=== PATIENT | female | born 1995 | race Caucasian/White ===

== ENCOUNTER 2025-03-31 18:56 | Inpatient (IN) ==
--- NOTE | 2025-03-31 20:02 | History & Physical Report ---
Date of Service March 31, 2025 Assessment & Plan (1) 39 weeks gestation of : (2) Vaginal discharge during : Plan No evid of rom. She is concerned she is partially ruptured, but i could feel palpable bag and no ferning. Will have her walk with pad and reevaluate. She agrees. NST reactive. History of Present Illness Chief Complaint: ?leaking Primary Care Provider: NO PCP 30yo at 39 weeks ega presents to LD with ? leak. She noted one episode of leaking with dripping down leg. Was asked to wear a pad and call if pad soaked. She shortly thereafter called and was concerned about pink dc and when I called her back she was sure she was leaking more fluid and wanted to come in for evaluation. She does feel more pain with ctx since arriving. Still with pink dc. 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 PNL rhpos, ri, gbs neg OBH: g1 GYNH: nl paps no stds Allergies Allergy/AdvReac Type Severity Reaction Status Date / Time No Known Allergies Allergy Verified 03/31/25 19:28 Home Medications Medication Instructions Recorded Confirmed Type 21-iron fu-folic acid 1 tab PO DAILY 09/04/24 03/31/25 History [ Complete] breast pump #1 ea 01/16/25 03/28/25 Rx Patient History Medical History Decreased ferritin Vitamin D deficiency Anorexia nervosa Varicella vaccination Surgical History S/P wisdom tooth extraction Family History Denies family history of Ovarian cancer Breast cancer Colorectal cancer Social History Smoking Status: Never smoker Do You Dip or Chew Tobacco: No; Hx Alcohol Use: No Hx Substance Use: No Preferred Language: Kinyarwanda Communication Ability: Effective Supervisor Brine Required: No Beliefs That Will Affect Care: None marital status: marital status details: Jean Gomez (29) [phone] Current Living Situation: Spouse Current Living Situation Comment: lives with spouse, cats-spouse changing litter current occupational status: employed current occupation: PhD student, research assist [employer] Feels Safe at Home: Yes Safety Concerns: Feels Safe At This Time Assistive Devices: Glasses Review of Systems as per Subjective / HPI Physical Exam Constitutional: WD/WN, vitals as above Neurologic: grossly normal Psychiatric: A+Ox3, euthymic affect Genitourinary: Manual OB Exam: + cervical dilation (palpable intact membrane) 1 cm (1+), + cervical effacement 90% and + station -1 (post) OB Exam Monitor Tracing: + external FHT monitor used, + external uterine monitor used (q2-3), + category I (nst reactive) and + normal FHT variability SSE no pooling. + pink/blood dc. nitrazine equiv. neg ferning. Results & Data Vital Signs (Past 12 Hours) Vital Signs Temp Pulse Resp BP 03/31/25 19:18 76 127/80 03/31/25 19:13 98.2 F 18 Coding Level of Care Code None Diagnoses 39 weeks gestation of Z3A.39 Vaginal discharge during O26.899; N89.8
--- NOTE | 2025-03-31 21:28 | Labor Progress Brief Note ---
Date of Service March 31, 2025 Subjective pt pad not wet. red blood and brown blood on pad. Assessment & Plan (1) 39 weeks gestation of : (2) Vaginal discharge during : Plan likely latent labor, can walk and be reexamined in 2hr or go home and call with worsening ctx, rom. fhts categ 1. Total time spent. 5min review of chart 15min by beside for this note and prior note --review of story, history, exam including slide exam. review of results and plan x 2. 10min documentation. Physical Exam Constitutional: WD/WN, vitals as above Genitourinary: Manual OB Exam: + cervical dilation (palpable membrane) 2 cm, + cervical effacement 100% and + station 0 (post) OB Exam Monitor Tracing: + external FHT monitor used, + external uterine monitor used (q3-4), + category I and + normal FHT variability Results & Data Vital Signs (Past 12 Hours) Vital Signs Temp Pulse Resp BP 03/31/25 19:18 76 127/80 03/31/25 19:13 98.2 F 18 Coding Level of Care Code 36571 OP VST EST MOD 30 MIN Diagnoses 39 weeks gestation of Z3A.39 Vaginal discharge during O26.899; N89.8 CPT Codes Misx Procedure Codes - 07238 NST: 21757 NST ([id number]) QUALITY [employer]OL ASSOCIATE Miscellaneous Codes Misx Procedure Codes 58710 NST
[2025-03-31] MEDS ORDERED: LIDOCAINE 1% LOCAL 20 ML VIAL INFIL PRN (22:13)
[2025-03-31] MEDS ORDERED: CALCIUM CARBONATE 500 MG CHEWABLE TAB PO PRN (22:13)
[2025-03-31] MEDS ORDERED: OXYTOCIN 30 UNITS/NSS 30 UNITS/500 ML BAG IV PRN (22:13)
--- NOTE | 2025-03-31 22:16 | Labor Progress Brief Note ---
Date of Service March 31, 2025 Subjective Patient had decided to go home but open getting up to get dressed, larger gush of fluid and gross srom per nurse. Assessment & Plan (1) 39 weeks gestation of : (2) PROM (premature rupture of membranes): Plan Now with gross srom. Admit in labor. fhts categ 1. Patient would like epidural. Physical Exam Constitutional: WD/WN, vitals as above Genitourinary: OB Exam Monitor Tracing: + external FHT monitor used, + external uterine monitor used, + category I and + normal FHT variability Results & Data Vital Signs (Past 12 Hours) Vital Signs Temp Pulse Resp BP 03/31/25 19:18 76 127/80 03/31/25 19:13 98.2 F 18 Coding Level of Care Code None Diagnoses 39 weeks gestation of Z3A.39 PROM (premature rupture of membranes) O42.90
[2025-03-31] MEDS ORDERED: NALOXONE HCL 1 MG in SODIUM CHLORIDE 0.9% 1,000 ML IV PRN (22:18)
[2025-03-31] MEDS ORDERED: SODIUM CHLORIDE 0.9% PF INJ 10 ML VIAL EPI PRN (22:18)
[2025-03-31] MEDS ORDERED: NALOXONE HCL 0.4 MG/1 ML VIAL/CARP IV PRN (22:18)
[2025-03-31] MEDS ORDERED: diphenhydrAMINE 50 MG/ML VIAL IV PRN (22:18)
[2025-03-31] MEDS ORDERED: BUPIVACAINE 0.25% PF 30 ML VIAL EPI PRN (22:18)
[2025-03-31] MEDS ORDERED: NALBUPHINE HCL INJ 10 MG/ML AMP IV PRN (22:18)
[2025-03-31] MEDS ORDERED: ROPIVACAINE 0.5% PF 5 MG/ML 20 ML VIAL EPI PRN (22:18)
[2025-03-31] MEDS ORDERED: LIDOCAINE 2% MPF LOCAL 5 ML VIAL EPI PRN (22:18)
--- NOTE | 2025-03-31 22:18 | Anesthesiology Consultation ---
Date of Service March 31, 2025 Assessment & Plan Chart Review Chart Review: Acceptable Risk for Surgery and Patient NOT seen in Pre Admission Testing Consults Requested none History Height/Weight Height: 5 ft 5 in Weight: 68.039 kg Allergies Allergy/AdvReac Type Severity Reaction Status Date / Time No Known Allergies Allergy Verified 03/31/25 19:28 Medications Home Medications Medication Instructions Recorded Confirmed Last Taken 21-iron fu-folic acid 1 tab PO DAILY 09/04/24 03/31/25 03/30/25 [ Complete] breast pump #1 ea 01/16/25 03/28/25 Unknown Past Medical History Medical History Decreased ferritin Vitamin D deficiency Anorexia nervosa Varicella vaccination Past Family History Family History Denies family history of Ovarian cancer Breast cancer Colorectal cancer Past Surgical History Surgical History S/P wisdom tooth extraction Social History Smoking Status: Never smoker Do You Dip or Chew Tobacco: No Hx Alcohol Use: No Hx Substance Use: No Physical Exam Vital Signs Last Vital Signs Temp 36.8 C 03/31/25 19:13 Pulse 76 03/31/25 19:18 Resp 18 03/31/25 19:13 BP 127/80 03/31/25 19:18
[2025-03-31] MEDS: LACTATED RINGER'S 1,000 ML IV PRN (22:20)
[2025-03-31 22:50] LABS: Hematocrit (blood only) 36.0 % (37.0-47.0); Hemoglobin 12.4 g/dl (12.0-16.0); Mean Corpuscular Hemoglobin 30.5 pg (25.0-34.0); Mean Corpuscular Volume 88.5 fL (80.0-100.0); Platelet Count 195 K/uL (130-400); RDW Standard Deviation 40.5 fL (36.4-46.3); Red Blood Count 4.07 M/uL (4.20-5.40); White Blood Count 9.38 K/ul (4.8-10.8)
[2025-03-31] MEDS: fentANYL 2 MCG/ML BUPIVacaine 0.125%-NSS 100ML BAG EPI PRN (23:07)
[2025-03-31] MEDS: LIDOCAINE 2%/EPINEPHRINE 1:200,000 20 ML PF EPI STA (23:18)
[2025-03-31] MEDS: OXYTOCIN 30 UNITS/NSS 30 UNITS/500 ML BAG IV PRN (23:55)
--- NOTE | 2025-04-01 00:09 | Delivery Summary ---
Vaginal Delivery Summary Date of Service April 01, 2025 Vaginal Delivery Summary The patient dilated to complete and pushed to deliver a viable female Apgars 9 and 9 via over small vaginal laceration. Mouth and nose bulb suctioned at perineum. Shoulders and body delivered with ease. was vigorous and crying at . Cord clamped at 30 seconds of life and to maternal abdomen where the cord was then doubly clamped and cut. Placenta delivered spontaneously and intact, three-vessel cord. Hemostasis achieved with dilute pitocin and uterine massage and drainage of the bladder for approximately 200 cc under sterile conditions. Laceration repaired with 3-0 vicryl at hymen with interrupted sutures and then periurethral laceration reapproximated with interrupted sutures of 3-0 vicryl. Cervix and sulci intact. QBL 59 cc. Mother and baby stable in recovery. [facility] Vaginal Delivery Charge Delivery Type Details:
[2025-04-01] MEDS: BUPIVACAINE 0.25% PF 30 ML VIAL EPI STA (01:08)
[2025-04-01] MEDS: SODIUM CHLORIDE 0.9% PF INJ 10 ML VIAL EPI STA (01:09)
[2025-04-01] MEDS: LIDOCAINE 2%/EPINEPHRINE 1:200,000 20 ML PF ONE (01:10)
[2025-04-01] MEDS: BUPIVACAINE 0.25% PF 30 ML VIAL ONE (01:10)
[2025-04-01] MEDS: fentANYL 2 MCG/ML BUPIVacaine 0.125%-NSS 100ML BAG ONE (01:10)
[2025-04-01] MEDS: SODIUM CHLORIDE 0.9% PF INJ 10 ML VIAL ONE (01:10)
[2025-04-01] MEDS ORDERED: OXYTOCIN 30 UNITS/NSS 30 UNITS/500 ML BAG IV PRN (01:11)
[2025-04-01] MEDS ORDERED: ACETAMINOPHEN 325 MG TAB PO PRN (01:11)
[2025-04-01] MEDS ORDERED: HYDROCORTISONE ACETATE 25 MG SUPP PR PRN (01:11)
[2025-04-01] MEDS: DIPHTHER/TETAN/PERTUS Vaccine (Tdap, Adol/Adult) 0.5mL IM ONE (07:15)
[2025-04-01] MEDS: PRENATAL VITAMIN 1 TAB PO SCH (07:35)
[2025-04-01] MEDS: DOCUSATE SODIUM 100 MG CAP PO SCH (07:35)
[2025-04-01] MEDS: IBUPROFEN 600 MG TAB PO PRN (07:35)
[2025-04-01] MEDS: BENZOCAINE 20% SPRY 85 APPLN/85 GM CAN EXT PRN (07:35)
--- NOTE | 2025-04-01 07:36 | Anesthesia Procedure Note ---
Date of Service April 01, 2025 Anesthesia Post Epidural Note Vital Signs Vital Signs: Temp Pulse Resp BP Pulse Ox O2 Del Method 36.7 C 62 16 122/74 100 Room Air 04/01/25 02:23 04/01/25 02:23 04/01/25 02:23 04/01/25 02:23 04/01/25 02:04/01/25 02:23 Notes Mental Status: alert / awake / arousable Nausea / Vomiting: adequately controlled Pain: adequately controlled Airway Patency, RR, SpO2: stable & adequate BP & HR: stable & adequate Hydration State: stable & adequate Neuraxial Anesthesia: was administered and sensory block is resolving Anesthetic Complications: no major complications apparent Epidural: Removed without complications and With tip intact
--- NOTE | 2025-04-01 10:41 | Obstetrical Progress Note ---
Date of Service April 01, 2025 Assessment & Plan (1) care and examination: Plan stable, doing well. routine care. rhpos, ri, breast feeding. Subjective Ambulation: ambulating normally Voiding: no voiding problems Diet Tolerance:: regular diet Lochia:: Small Feeding Type:: breast feeding no concerns Constitutional: + as per Subjective / HPI Physical Exam Constitutional WD/WN, vitals as above Respiratory normal respiratory effort, lungs clear to auscultation Cardiovascular Rate/Rhythm: regular rate and regular rhythm Gastrointestinal (Abdomen) Inspection/Auscultation: abdomen normal to inspection Percussion/Palpation: abdomen soft Fundus firm 1cm down toward right Musculoskeletal nt calves no edema Neurologic grossly normal Psychiatric A+Ox3, euthymic affect Results & Data Vital Signs (Past 12 Hours) Vital Signs Temp Pulse Pulse Resp BP BP Pulse Ox 04/01/25 07:45 99.0 F 73 20 112/70 97 04/01/25 02:23 98.1 F 62 16 122/74 100 04/01/25 02:01 73 123/68 04/01/25 01:46 75 111/66 04/01/25 01:31 61 116/69 04/01/25 01:16 61 111/66 04/01/25 01:01 68 108/63 04/01/25 00:46 18 04/01/25 00:46 81 109/64 04/01/25 00:31 80 113/69 04/01/25 00:21 18 04/01/25 00:16 110/63 04/01/25 00:01 87 113/62 04/01/25 00:00 90 98 03/31/25 23:55 93 H 97 03/31/25 23:50 101 H 96 03/31/25 23:48 118 H 140/78 03/31/25 23:47 90 18 88 L 03/31/25 23:45 102 H 97 03/31/25 23:41 95 H 90 03/31/25 23:39 81 98 03/31/25 23:34 70 97 03/31/25 23:33 75 110/71 03/31/25 23:29 61 98 03/31/25 23:24 64 97 03/31/25 23:20 18 03/31/25 23:20 98.1 F 18 03/31/25 23:19 58 L 99 03/31/25 23:18 56 L 114/68 03/31/25 23:16 61 116/67 03/31/25 23:14 71 112/69 97 03/31/25 23:12 64 121/80 03/31/25 23:10 60 123/76 03/31/25 23:09 70 97 03/31/25 23:08 59 L 119/78 03/31/25 23:06 61 124/77 03/31/25 23:04 61 97 03/31/25 23:00 62 94 03/31/25 22:59 61 97 03/31/25 22:54 68 95 O2 Del Method 04/01/25 07:45 Room Air 04/01/25 02:23 Room Air 04/01/25 02:01 04/01/25 01:46 04/01/25 01:31 04/01/25 01:16 04/01/25 01:01 04/01/25 00:46 04/01/25 00:46 04/01/25 00:31 04/01/25 00:21 04/01/25 00:16 04/01/25 00:01 04/01/25 00:00 03/31/25 23:55 03/31/25 23:50 03/31/25 23:48 03/31/25 23:47 03/31/25 23:45 03/31/25 23:41 03/31/25 23:39 03/31/25 23:34 03/31/25 23:33 03/31/25 23:29 03/31/25 23:24 03/31/25 23:20 03/31/25 23:20 03/31/25 23:19 03/31/25 23:18 03/31/25 23:16 03/31/25 23:14 03/31/25 23:12 03/31/25 23:10 03/31/25 23:09 03/31/25 23:08 03/31/25 23:06 03/31/25 23:04 03/31/25 23:00 03/31/25 22:59 03/31/25 22:54
[2025-04-01 12:08] VITALS: RESP 16
--- NOTE | 2025-04-02 05:57 | Obstetrical Progress Note ---
Date of Service April 02, 2025 Assessment & Plan (1) care and examination: Plan: Patient is post status day 2 and is currently stable. Will discharge today. Admission and Anticipated Discharge Date Admission Date: March 31, 2025 Subjective 30 yo post- day 1 s/p [] Ambulation: ambulating normally Voiding: no voiding problems Passing Gas:: Yes Diet Tolerance:: regular diet Feeding Type:: breast feeding Current Pain Level:2-3/10. Patient describes the pain as minor cramping in her lower abdomen. Patient also admits to having the pain with breast feeding as well. Resting comfortably this AM in NAD. Patient admits to breast pain when baby tries to latch onto her breast. Patient also stated that when she pees it mak when she doesn't use the spray bottle. Denies fevers/chills, GUTIERREZ, CP/palp, SOB/cough/wheezing, N/V, LE pain, breast dschrg Review of Systems Review of Systems: as per subjective HPI Physical Exam Constitutional: WD/WN, vitals as above Respiratory: normal respiratory effort, lungs clear to auscultation Cardiovascular: RRR, no murmur, no edema Extremities: no calf tenderness and no edema Gastrointestinal (Abdomen): Percussion/Palpation: abdomen soft; abdomen nontender Skin: no rashes, warm and dry Psychiatric: Eye Contact: good eye contact Speech: normal rate/rhythm/volume of speech Thought Process: linear/logical thought process Genitourinary: uterus is firm and Results & Data Vital Signs (Past 12 Hours) Vital Signs Temp Pulse Resp BP Pulse Ox O2 Del Method 04/01/25 22:55 37 C 63 16 104/68 97 Room Air 04/01/25 19:15 36.7 C 70 16 115/76 99 Room Air Laboratory Results Lab Results 03/31/25 Range/Units 22:29 WBC 9.38 (4.8-10.8) K/ul RBC 4.07 L (4.20-5.40) M/uL Hgb 12.4 (12.0-16.0) g/dl Hct 36.0 L (37.0-47.0) % MCV 88.5 (80.0-100.0) fL MCH 30.5 (25.0-34.0) pg MCHC 34.4 (32.0-36.0) g/dL RDW Std Deviation 40.5 (36.4-46.3) fL RDW Coeff of Sandra 12.4 (11.5-14.5) % Plt Count 195 (130-400) K/uL MPV 10.7 (9.4-12.4) fL Treponema pallidum Ab Negative (Negative)
--- NOTE | 2025-04-02 06:30 | Obstetrical Progress Note ---
Date of Service April 02, 2025 Assessment & Plan (1) care and examination: Plan stable, ready for dc home. instructions reviewed. f/u 6 wk pp check. discussed bowel care and ok for miralax. Subjective Ambulation: ambulating normally Voiding: no voiding problems Diet Tolerance:: regular diet Lochia:: Small Feeding Type:: breast feeding no concerns. no bm yet and she asked about what to expect. Constitutional: + as per Subjective / HPI Physical Exam Constitutional WD/WN, vitals as above Respiratory normal respiratory effort, lungs clear to auscultation Cardiovascular Rate/Rhythm: regular rate and regular rhythm Gastrointestinal (Abdomen) Inspection/Auscultation: abdomen normal to inspection Percussion/Palpation: abdomen soft Fundus firm 2cm down Musculoskeletal nt calves no edema Neurologic grossly normal Psychiatric A+Ox3, euthymic affect Results & Data Vital Signs (Past 12 Hours) Vital Signs Temp Pulse Resp BP Pulse Ox O2 Del Method 04/01/25 22:55 98.6 F 63 16 104/68 97 Room Air 04/01/25 19:15 98.1 F 70 16 115/76 99 Room Air
[2025-04-02 07:15] VITALS: BP 103/68; TEMP 97.9; O2SAT 98
[2025-04-02 09:41] VITALS: PULSE 63
== END 2025-04-02 15:30 | disposition home or self-care (01) | DRG 768 ==
LOC: OPB 18:56 → 4S1 19:01 → 4E2 04-01 03:29